=== PATIENT | female | born 2000 | race Caucasian/White ===

== ENCOUNTER 2023-01-30 14:45 | Emergency (ER) | payer OTHER ==
[~2023-01-30] VITALS: Ht 154.9 cm; Wt 50.3 kg
[~2023-01-30 14:45] MED LIST: BACITRAYCIN PLU28 GM TD; IBU800 M1 PO; XEROFORM PETRO1 EAC2 TD
[2023-01-30] MEDS ORDERED: Motrin,Rufen800 MG PO (15:04)
== END 2023-01-30 15:18 | disposition home or self-care (01) ==
LOC: ED 14:45
DX: K04.7 Periapical abscess without sinus (principal); R22.9 Localized swelling, mass and lump, unspecified